=== PATIENT | female | born 1960 | race Caucasian/White ===

== ENCOUNTER 2019-10-03 19:47 | Emergency (ER) | payer OTHER, MEDICARE, MEDICAID ==
[~2019-10-03] VITALS: Ht 152.4 cm; Wt 67.9 kg
[2019-10-03] MEDS ORDERED: HYDROcodone/acetaminophen 10/325mg tab PO ONE (21:10)
[2019-10-03] MEDS ORDERED: orphenadrine citrate 60mg/2ml inj. IM ONE (21:10)
[2019-10-03] MEDS ORDERED: ketorolac trometh inj. 60 MG/2 ML VIAL IM ONE (21:10)
[2019-10-03] MEDS ORDERED: HYDR-4353 PO (21:10)
[2019-10-03] MEDS ORDERED: ORPH100T2 PO (21:10)
[2019-10-03 21:49] VITALS: BP 145/78
== END 2019-10-03 21:51 | disposition home or self-care (01) ==
LOC: ER 19:48
DX: S39.012A Strain of muscle, fascia and tendon of lower back, initial encounter (principal); M54.41 Lumbago with sciatica, right side; I10 Essential (primary) hypertension; J44.9 Chronic obstructive pulmonary disease, unspecified; E03.9 Hypothyroidism, unspecified; M19.90 Unspecified osteoarthritis, unspecified site; F17.200 Nicotine dependence, unspecified, uncomplicated; Z88.8 Allergy status to other drugs, medicaments and biological substances; Z88.5 Allergy status to narcotic agent; X50.1XXA Overexertion from prolonged static or awkward postures, initial encounter; Y93.89 Activity, other specified; Y92.89 Other specified places as the place of occurrence of the external cause; Y99.9 Unspecified external cause status
CPT/HCPCS: 96372; 99283; J1885; J2360

== ENCOUNTER 2020-12-03 17:30 | Emergency (ER) | payer MEDICARE, MEDICAID ==
[~2020-12-03] VITALS: Ht 154.9 cm; Wt 75.0 kg
[~2020-12-03 17:30] MED LIST: HYDR-3686 PO; HYDR25TA5 PO; LEVO88TA2 PO; MELO-102 PO; MU-V1TAB28; NALO12.52 PO; PREG150C46 PO; QUET-1 PO; SOLI10TA2 PO; SULF-14 PO; TIZA4TAB5 PO; VITA1TAB37 PO
[2020-12-03 17:43] VITALS: BP 106/63
[2020-12-03] MEDS ORDERED: METH4TAB81 PO (19:49)
[2020-12-03] MEDS ORDERED: ketorolac trometh. 30mg/ml inj. IM ONE (19:50)
== END 2020-12-03 20:05 | disposition home or self-care (01) ==
LOC: ER 17:30
DX: M25.511 Pain in right shoulder (principal); I10 Essential (primary) hypertension; J44.9 Chronic obstructive pulmonary disease, unspecified; E07.9 Disorder of thyroid, unspecified; M19.90 Unspecified osteoarthritis, unspecified site; Z88.8 Allergy status to other drugs, medicaments and biological substances; Z79.899 Other long term (current) drug therapy
CPT/HCPCS: 96372; 99283; J1885

== ENCOUNTER 2021-09-12 08:12 | Inpatient (IN) | payer MEDICARE, MEDICAID ==
[2021-09-05 12:03] LABS: BASOPHILS # (AUTO) 0.1 X10'3 (0-0.2); BASOPHILS % (AUTO) 1.1 % (0-1); EOSINOPHILS # (AUTO) 0.1 X10'3 (0-0.9); EOSINOPHILS % (AUTO) 1.9 % (0-6); LYMPHOCYTES # (AUTO) 1.7 X10'3 (1.1-4.8); LYMPHOCYTES % (AUTO) 30.4 % (21-51); MEAN CORPUSCULAR HEMOGLOBIN 28.6 PG (27.0-31.0); MEAN CORPUSCULAR HGB CONC 34.7 g/dL (33.0-36.5); MEAN CORPUSCULAR VOLUME 82.2 FL (78-98); MEAN PLATELET VOLUME 8.5 FL (7.4-10.4); MONOCYTES # (AUTO) 0.5 X10'3 (0-0.9); MONOCYTES % (AUTO) 9.9 % (2-12); NEUTROPHILS # (AUTO) 3.1 X10'3 (1.8-7.7); NEUTROPHILS % (AUTO) 56.7 % (42-75); PRE OP HEMATOCRIT 42.9 % (35.0-45.0); PRE OP HEMOGLOBIN 14.9 g/dL (12.0-16.0); PRE OP PLATELET COUNT 209 X10'3 (140-440); RED BLOOD COUNT 5.22 X10'6 (4.20-5.60); RED CELL DISTRIBUTION WIDTH 22.9 % (11.5-14.5)
[2021-09-05 12:15] LABS: ALBUMIN 3.8 G/DL (3.4-5.0); ALBUMIN/GLOBULIN RATIO 1.4 (1.1-1.5); ALKALINE PHOSPHATASE 110 IU/L (46-116); BLOOD UREA NITROGEN 12 MG/DL (7-18); BUN/CREATININE RATIO 14.1 (6.6-38.0); CHLORIDE 94 MMOL/L (99-107); CREATININE 0.85 MG/DL (0.40-0.90); PRE OP ALT 26 U/L (30-65); PRE OP ANION GAP 8 (8-16); PRE OP AST 58 U/L (10-37); PRE OP BILIRUB, TOTAL 0.4 MG/DL (0.0-1.0); PRE OP GLUCOSE 88 MG/DL (70-104); PRE OP POTASSIUM 3.6 MMOL/L (3.4-5.1); TOTAL CARBON DIOXIDE 27.8 MMOL/L (24-32); TOTAL PROTEIN 6.5 G/DL (6.4-8.2); eGFR 68 ML/MIN
[2021-09-05 12:19] LABS: PRE OP SODIUM 130 MMOL/L (135-145)
[2021-09-05 16:04] LABS: ANISOCYTOSIS 3+; HYPOCHROMASIA 1+; PLATELET ESTIMATE NORMAL; SCHISTOCYTES FEW
[2021-09-12] VITALS (22 sets, daily range): BP systolic 134–199; BP diastolic 60–132
[~2021-09-12] VITALS: Ht 152.4 cm; Wt 65.9 kg
[~2021-09-12 08:12] MED LIST changes: +ASEN10TA9 SL; +CETI5TAB27 PO; -HYDR-3686 PO; +LEVO175T7 PO; -LEVO88TA2 PO; +LURA40TA3 PO; -MELO-102 PO; -MU-V1TAB28; -NALO12.52 PO; +OXYC-658 PO; -QUET-1 PO; -SOLI10TA2 PO; -SULF-14 PO; +TIZA-205 PO; -TIZA4TAB5 PO; +VANCOMYCIN INJ 1000 MG in NORMAL SALINE 250ml IV.SOLN IV ONE; -VITA1TAB37 PO; +albuterol 2.5 MG/3 ML nebule NEB ONE; +cefazolin/dext.iso 2gm/50ml IV ONE; +famotidine 20mg tablet PO ONE; +iron PO; +ringers solution, lacted 1,000 ML IV SCH; +tranexamic acid inj. 1,000 MG in 0.7% saline 100 ML PMX IV ONE
[2021-09-12 09:26] LABS: ISTAT CREATININE 0.8 mg/dL (0.6-1.1); ISTAT IONIZED CALCIUM 1.24 mmol/L (1.03-1.32); ISTAT K 3.7 mmol/L (3.5-5.1); POC BUN/CREATININE RATIO 12.5 (6.6-38.0)
[2021-09-12] MEDS ORDERED: vancomycin 1,000mg inj ONE (09:34)
[2021-09-12] MEDS ORDERED: ROPIVAcaine inj 200 MG, ketorolac trometh inj. 15 MG, epiNEPHrine inj 0.6 MG, morphine ... IU ONE ×5 (09:35)
[2021-09-12] MEDS ORDERED: oxyCODONE IR 5mg (immed. release) tablet PO PRN ×3 (09:45→19:55)
[2021-09-12] MEDS ORDERED: CLON0.1T2 PO (10:00)
[2021-09-12] MEDS ORDERED: sevoflurane 250ml liquid IH ONE (10:20)
[2021-09-12] MEDS ORDERED: tetracaine 1% (10mg/ml) pres. free inj. ONE (10:27)
[2021-09-12] MEDS ORDERED: proCHLORperazine 10 MG/2 ml inj IV PRN (10:45)
[2021-09-12] MEDS ORDERED: ondansetron/PF 4mg/2ml inj IV PRN ×2 (10:45→12:05)
[2021-09-12] MEDS ORDERED: ringers solution, lacted 1,000 ML IV SCH (10:45)
[2021-09-12] MEDS ORDERED: HYDROmorphone/PF 0.2 MG/ML SYRINGE IV PRN (10:45)
[2021-09-12] MEDS ORDERED: meperidine/PF 25mg/ml syringe IV PRN (10:45)
[2021-09-12] MEDS ORDERED: morphine 2 MG/ML inj. syringe IV PRN (10:45)
[2021-09-12] MEDS ORDERED: morphine 4 MG/ML inj SYRINge IV PRN (10:45)
[2021-09-12] MEDS ORDERED: hydrALAZINE 20mg/ml inj. IV PRN (10:45)
[2021-09-12] MEDS ORDERED: acetaminophen 1,000mg/100ml IV 100 ML IV PRN (10:45)
[2021-09-12] MEDS ORDERED: MIDAZolam 1 MG/ML 5ML VIAL ONE (10:48)
[2021-09-12] MEDS ORDERED: ROPIVAcaine 0.2%/PF PUMP/bolus 545 ML ADDCANAL SCH (10:50)
[2021-09-12] MEDS ORDERED: ROPIVAcaine 0.2% (10 MG/5 ML) BOLUS INJECTION ADDCANAL PRN (10:50)
[2021-09-12] MEDS ORDERED: LIDOcaine 2% (20mg/ml) 5ml vial ONE (10:53)
[2021-09-12] MEDS ORDERED: dexamethasone sod phosphate 4mg/ml inj. ONE (10:53)
[2021-09-12] MEDS ORDERED: ondansetron/PF 4mg/2ml inj ONE (10:53)
[2021-09-12] MEDS ORDERED: rocuronium 10mg/ml inj IV ONE (10:53)
[2021-09-12] MEDS ORDERED: propofol inj 20 ML IV ONE (10:53)
[2021-09-12] MEDS ORDERED: fentaNYL /PF 50mcg/ml 5ml ampule ONE (10:53)
[2021-09-12] MEDS ORDERED: ROPIVAcaine 0.5% (5mg/ml) 30ml vial ONE ×2 (10:59→12:12)
[2021-09-12] MEDS ORDERED: HYDROmorphone 1 mg/ml syringe ONE (11:25)
[2021-09-12] MEDS ORDERED: acetaminophen 325mg tablet PO PRN (12:05)
[2021-09-12] MEDS ORDERED: HYDROmorphone 1 mg/ml syringe IV PRN (12:05)
[2021-09-12] MEDS ORDERED: magnesium hydroxide 30ml (MOM) UD suspension PO PRN (12:05)
[2021-09-12] MEDS ORDERED: HYDROmorphone inj. 0.5 MG/0.5 ML DISP.SYRIN IV PRN (12:05)
[2021-09-12] MEDS ORDERED: bisacodyl 10mg suppository rectal RC PRN (12:05)
[2021-09-12] MEDS ORDERED: diphenhydrAMINE 25mg capsule PO PRN ×2 (12:05)
[2021-09-12] MEDS ORDERED: hydrALAZINE 20mg/ml inj. IV ONE (12:12)
--- NOTE | 2021-09-12 12:18 | NUR ---
Received from OR via , accompanied by Anesthesiologist DR GRAHAM and report given by Anesthesiolgist. PT PRESENTSS WITH 20G LEFT HAND, LEFT KNEE WRAP AND DRESSING CLEAN DRY AND INTACT WITH POWDER PACK. VSS. Addendum: 09/12/21 at 1227 by Sirisha De La Rosa RN, RN Amended: Links added.
[2021-09-12] MEDS: HYDROmorphone/PF 0.2 MG/ML SYRINGE IV PRN ×2 (12:31→13:16)
[2021-09-12] MEDS: labetalol 20mg/4ml (5mg/ml) syringe IV PRN ×2 (12:38→13:24)
[2021-09-12] MEDS: oxyCODONE IR 5mg (immed. release) tablet PO PRN ×2 (13:38→19:56)
--- NOTE | 2021-09-12 14:18 | NUR ---
Report called to receiving nurse MAGUE NIETO. Transferred via HOSPITAL BED WITH 2 PT BELONGING BAGS. PT TRANSPORTED BY OR WHEEL GRINDER. Special Issues communicated to receiving nurse. Addendum: 09/12/21 at 1443 by Sirisha De La Rosa RN, RN Amended: Links added.
--- NOTE | 2021-09-12 14:19 | NUR ---
received report from GERSON Grimm. awaiting patient arrival.
--- NOTE | 2021-09-12 15:00 | NUR ---
Patient arrived to the floor. VSS. significant amount of bleeding noted to knee wrap. Message left with TERRENCE Branham
[2021-09-12] MEDS: potassium cl 20mEq in 1/2 NS 1,000 ML IV SCH ×2 (15:09→15:47)
[2021-09-12] MEDS: gabapentin 300mg capsule PO SCH ×2 (15:09→20:56)
--- NOTE | 2021-09-12 15:30 | NUR ---
TERRENCE Branham arrived to the floor and spoke with surgeon, he advised to removed and replace pressure dressing. this was completed with myself and tech at bedside
[2021-09-12] MEDS: acetaminophen 325mg tablet PO SCH ×2 (15:46→19:56)
--- NOTE | 2021-09-12 16:00 | NUR ---
measurements taken starting from top of knee down in order... 46cm, 45.5cm, 39.5cm, 37.5cm.
--- NOTE | 2021-09-12 17:24 | NUR ---
reassessed measurements with PA at bedside, no difference noted.
--- NOTE | 2021-09-12 17:49 | NUR ---
please DC recovery room medications. thank you
--- NOTE | 2021-09-12 18:23 | NUR ---
Techs charting post op vitals. Addendum: 09/12/21 at 1824 by Gerda Menchaca RN Amended: Links added.
--- NOTE | 2021-09-12 18:55 | NUR ---
Problems reprioritized. Patient report given, questions answered & plan of care reviewed with GERSON Avila.
[2021-09-12] MEDS: pregabalin 75mg capsule PO SCH (20:56)
[2021-09-12] MEDS: tizanidine 4mg tablet PO PRN (20:56)
[2021-09-12] MEDS ORDERED: cloNIDine 0.1 mg tablet PO SCH (21:00)
[2021-09-12] MEDS ORDERED: lurasidone 20mg tablet PO SCH (21:00)
[2021-09-12] MEDS ORDERED: asenapine 5mg TAB.SUBL SL SCH (21:00)
[2021-09-12] MEDS ORDERED: sennosides 8.6mg tablet PO SCH (21:00)
[2021-09-13] VITALS: BP 132/64
[2021-09-13] MEDS: potassium cl 20mEq in 1/2 NS 1,000 ML IV SCH ×2 (01:20→12:05)
[2021-09-13] MEDS: acetaminophen 325mg tablet PO SCH ×3 (02:00→13:54)
[2021-09-13] MEDS: oxyCODONE IR 5mg (immed. release) tablet PO PRN ×3 (04:25→13:53)
[2021-09-13] MEDS: tizanidine 4mg tablet PO PRN (05:42)
--- NOTE | 2021-09-13 06:45 | NUR ---
Problems reprioritized. Patient report given, questions answered & plan of care reviewed with GERSON Lorenz.
[2021-09-13 07:15] VITALS: BP 128/77
[2021-09-13] MEDS: gabapentin 300mg capsule PO SCH ×2 (07:48→13:53)
[2021-09-13] MEDS: pregabalin 75mg capsule PO SCH ×2 (07:51→13:53)
[2021-09-13] MEDS ORDERED: HYDROchlorothiazide 25mg tablet PO SCH (08:00)
[2021-09-13] MEDS ORDERED: levoTHYROXINE 175mcg tablet PO SCH (08:00)
[2021-09-13] MEDS ORDERED: cetirizine 10mg tablet PO SCH (08:00)
[2021-09-13] MEDS ORDERED: iron polysaccharide complex 150mg capsule PO SCH (08:00)
[2021-09-13] MEDS ORDERED: HYDROmorphone inj. 0.5 MG/0.5 ML DISP.SYRIN IV STA (11:16)
[2021-09-13 12:00] VITALS: BP 171/77
--- NOTE | 2021-09-13 14:28 | NUR ---
patient stable and appropriate for discharge home with . IV removed, all belongings taken from room. New rx sent to pharmacy. OnQ ball full and patient instructed on use. All discharge instructions and education given and reviewed with patient, all questions answered. Knee wrap and powder packs sent with patient, dressing CDI at time of discharge. no s/s of bleeding this shift.
[2021-09-13] MEDS ORDERED: celeCOXIB 100mg capsule PO SCH (20:00)
[2021-09-14] MEDS ORDERED: acetaminophen 325mg tablet PO PRN (12:05)
== END 2021-09-13 14:28 | disposition home health service (06) | DRG 488 ==
LOC: UNDOADMIN 08:12 → PAS IN 08:12 → SUR 3N 14:30 → PAS IN 14:30
PROVIDERS: ADMIT Orthopaedic Surgery; ATTEND Orthopaedic Surgery
PROC: 0SUW09Z Supplement Left Knee Joint, Tibial Surface with Liner, Open Approach (ICD-10-PCS; 2021-09-12)
PROC: 3E0T3BZ Introduction of Anesthetic Agent into Peripheral Nerves and Plexi, Percutaneous Approach (ICD-10-PCS; 2021-09-12)
PROC: 3E0T33Z Introduction of Anti-inflammatory into Peripheral Nerves and Plexi, Percutaneous Approach (ICD-10-PCS; 2021-09-12)
PROC: 0SPD09Z Removal of Liner from Left Knee Joint, Open Approach (ICD-10-PCS; principal; 2021-09-12 10:20)
DX: T84.023A Instability of internal left knee prosthesis, initial encounter (principal); E87.1 Hypo-osmolality and hyponatremia; J44.9 Chronic obstructive pulmonary disease, unspecified; F31.9 Bipolar disorder, unspecified; I10 Essential (primary) hypertension; Y79.2 Prosthetic and other implants, materials and accessory orthopedic devices associated with adverse incidents; Y92.89 Other specified places as the place of occurrence of the external cause; Z79.899 Other long term (current) drug therapy
CPT/HCPCS: 36415; 71046; 80047; 80053; 84443; 85008; 85025; 87070; 87075; 87081; 93005; 97110; 97116; 97162; G0378; J0360; J0690; J1100; J1170; J2250; J2405; J2704; J2795; J3010; J3370; J3480; J3490; J7120; U0003; U0005

== ENCOUNTER 2021-09-22 11:28 | Emergency (ER) | payer MEDICARE, MEDICAID ==
[~2021-09-22] VITALS: Ht 152.4 cm; Wt 65.9 kg
[~2021-09-22 11:28] MED LIST changes: +CLON0.1T2 PO; -VANCOMYCIN INJ 1000 MG in NORMAL SALINE 250ml IV.SOLN IV ONE; -albuterol 2.5 MG/3 ML nebule NEB ONE; -cefazolin/dext.iso 2gm/50ml IV ONE; -famotidine 20mg tablet PO ONE; -ringers solution, lacted 1,000 ML IV SCH; -tranexamic acid inj. 1,000 MG in 0.7% saline 100 ML PMX IV ONE
[2021-09-22 11:54] VITALS: BP 185/96
[2021-09-22] MEDS ORDERED: morphine 4 MG/ML inj SYRINge IM ONE (13:25)
[2021-09-22] MEDS ORDERED: ondansetron 4mg rapidly disintigrating tab PO ONE (13:25)
[2021-09-22] MEDS ORDERED: CEPH250T PO ×2 (13:32)
== END 2021-09-22 14:15 | disposition home or self-care (01) ==
LOC: ER 11:30
DX: L03.116 Cellulitis of left lower limb (principal); R00.0 Tachycardia, unspecified; I10 Essential (primary) hypertension; J44.9 Chronic obstructive pulmonary disease, unspecified; E03.9 Hypothyroidism, unspecified; F31.9 Bipolar disorder, unspecified; Z88.8 Allergy status to other drugs, medicaments and biological substances; Z79.2 Long term (current) use of antibiotics; Z79.899 Other long term (current) drug therapy
CPT/HCPCS: 96372; 99283; J2270

== ENCOUNTER 2022-11-18 11:16 | Emergency (ER) | payer MEDICARE, MEDICAID ==
[~2022-11-18] VITALS: Ht 152.4 cm; Wt 59.1 kg
[~2022-11-18 11:16] MED LIST changes: +LURA40TA2 PO; -LURA40TA3 PO
[2022-11-18 11:24] VITALS: BP 190/80
== END 2022-11-18 16:56 | disposition left against medical advice (07) ==
LOC: ER 11:17
DX: Z00.00 Encounter for general adult medical examination without abnormal findings (principal); Z53.21 Procedure and treatment not carried out due to patient leaving prior to being seen by health care provider
CPT/HCPCS: 99281

== ENCOUNTER 2022-11-19 11:28 | Emergency (ER) | payer MEDICARE, MEDICAID ==
[~2022-11-19] VITALS: Ht 152.4 cm; Wt 59.1 kg
[2022-11-19 11:44] VITALS: BP 138/73
== END 2022-11-19 12:41 | disposition home or self-care (01) ==
LOC: ER 11:28
DX: F11.99 Opioid use, unspecified with unspecified opioid-induced disorder (principal); I10 Essential (primary) hypertension; J44.9 Chronic obstructive pulmonary disease, unspecified; E03.9 Hypothyroidism, unspecified; F31.9 Bipolar disorder, unspecified; F17.200 Nicotine dependence, unspecified, uncomplicated; Z88.5 Allergy status to narcotic agent; Z88.8 Allergy status to other drugs, medicaments and biological substances
CPT/HCPCS: 99281